=== PATIENT | female | born 1985 | race Caucasian/White ===

== ENCOUNTER 2017-07-05 12:42 | Emergency (ER) | payer OTHER, MEDICAID ==
[~2017-07-05] VITALS: Ht 157.5 cm; Wt 77.1 kg
[~2017-07-05 12:42] MED LIST: AZITHROMYCIN 2250 MG PO; CHLORZOXAZONE500 MG PO; DICLOFENAC SODI75 MG PO; HYDROCODONE-AP1 EAC6 PO; HYDROXYZINE HCL25 M1 PO; NAPROSYN500 MG PO; ROBAXIN500 MG PO; TRAMADOL; TRINATE TABLET1 TAB; VISTARIL 25 MG25 M1 PO
[2017-07-05 13:51] LABS: ABSOLUTE BASOPHILS 0.1 thou/uL (0.0-0.2); ABSOLUTE EOSINOPHILS 0.2 thou/uL (0.0-0.7); ABSOLUTE LYMPHOCYTES 2.7 thou/uL (0.8-5.3); ABSOLUTE MONOCYTES 0.7 thou/uL (0.0-1.2); ABSOLUTE NEUTROPHILS 10.5 thou/uL (1.6-8.1); BASOPHILS 0.6 %; EOSINOPHILS 1.5 %; HEMATOCRIT 42.2 % (37.0-47.0); HEMOGLOBIN 14.2 gm/dL (12.0-15.0); LYMPHOCYTES 18.9 %; MCH 31.2 pg (26.0-34.0); MCHC 33.6 g/dL (28.0-37.0); MCV 92.8 fL (80.0-100.0); MPV 8.5 fl. (7.2-11.1); NUCLEATED RBCS 0 /100WBC; PLATELET COUNT* 264 thou/uL (150-400); RBC 4.55 mil/uL (4.20-5.00); RDW-CV 12.2 % (10.5-14.5); WBC 14.2 thou/uL (4.0-11.0)
[2017-07-05 13:59] LABS: CALCIUM 8.9 mg/dL (8.5-10.1); CREATININE 0.6 mg/dL (0.6-1.3); POTASSIUM 3.4 mmol/L (3.5-5.1)
[2017-07-05 14:04] LABS: ALBUMIN 3.3 g/dL (3.4-5.0); TOTAL BILIRUBIN 0.2 mg/dL (<0.1-1.0); TOTAL PROTEIN 7.3 g/dL (6.4-8.2)
[2017-07-05 14:21] LABS: URINE BILIRUBIN NEGATIVE (Negative); URINE BLOOD TRACE (Negative); URINE CLARITY CLEAR; URINE COLOR YELLOW; URINE GLUCOSE-RANDOM NEGATIVE (Negative); URINE KETONES NEGATIVE (Negative); URINE LEUKOCYTES 2+ (Negative); URINE NITRITE NEGATIVE (Negative); URINE PROTEIN NEGATIVE (Negative); URINE UROBILINOGEN 0.2 E.U./dl (0.2-1.0)
[2017-07-05 14:32] LABS: AMP/METHAMP Negative (Negative); BARBITURATES Negative (Negative); BENZODIAZEPINES POSITIVE (Negative); COCAINE Negative (Negative); METHADONE Negative (Negative); OPIATES Negative (Negative); PCP Negative (Negative); SQUAMOUS >10 Many /LPF (0-3); THC POSITIVE (Negative); URINE WBC 6-15 Few /HPF (0-5)
[2017-07-05 14:35] LABS: BACTERIA 1-9 Few /HPF (None Seen); URINE RBC 0-2 Rare /HPF (0-2)
[2017-07-05 14:38] LABS: CASTS None Seen /LPF (None Seen); CRYSTALS None Seen /LPF (None Seen); MUCUS 0-3 Light strn/LPF (None Seen)
[2017-07-05] MEDS ORDERED: KEFLEX500 M1 PO (17:05)
[2017-07-05] MEDS ORDERED: ZOFRAN ODT4 MG PO (17:05)
[2017-07-05 17:16] VITALS: BP 143/77
== END 2017-07-05 17:17 | disposition home or self-care (01) ==
LOC: M.ERS 12:42
PROVIDERS: Physician Assistant
DX: O23.41 Unspecified infection of urinary tract in pregnancy, first trimester (principal); Z3A.08 8 weeks gestation of pregnancy; F12.10 Cannabis abuse, uncomplicated

== ENCOUNTER 2018-03-31 14:31 | Emergency (ER) | payer OTHER, MEDICAID ==
[~2018-03-31] VITALS: Ht 157.5 cm; Wt 79.4 kg
[~2018-03-31 14:31] MED LIST changes: +KEFLEX500 M1 PO; +ZOFRAN ODT4 MG PO
[2018-03-31] MEDS ORDERED: NABUMETONE 750750 M1 PO (16:05)
[2018-03-31 16:28] VITALS: BP 142/93
== END 2018-03-31 16:29 | disposition home or self-care (01) ==
LOC: M.ERS 14:31
DX: S93.492A Sprain of other ligament of left ankle, initial encounter (principal); Z88.1 Allergy status to other antibiotic agents; Z88.5 Allergy status to narcotic agent; W10.9XXA Fall (on) (from) unspecified stairs and steps, initial encounter; Y92.89 Other specified places as the place of occurrence of the external cause; Y93.89 Activity, other specified; Y99.8 Other external cause status

== ENCOUNTER 2020-04-24 17:53 | Emergency (ER) | payer OTHER, MEDICAID ==
[~2020-04-24] VITALS: Ht 157.5 cm; Wt 102.1 kg
[~2020-04-24 17:53] MED LIST changes: +NABUMETONE 750750 M1 PO
[2020-04-24] MEDS ORDERED: MIRENA1 EACH VAG (18:01)
[2020-04-24 18:45] LABS: URINE BILIRUBIN NEGATIVE (Negative); URINE BLOOD 1+ (Negative); URINE COLOR YELLOW; URINE GLUCOSE-RANDOM NEGATIVE (Negative); URINE KETONES NEGATIVE (Negative); URINE LEUKOCYTES-REFLEX NEGATIVE (Negative); URINE NITRITE-REFLEX NEGATIVE (Negative); URINE PROTEIN NEGATIVE (Negative); URINE SPECIFIC GRAVITY >= 1.030 (1.005-1.030); URINE UROBILINOGEN 0.2 E.U./dl (0.2-1.0)
[2020-04-24 18:50] LABS: URINE CLARITY HAZY
[2020-04-24 18:59] LABS: BACTERIA-REFLEX None Seen /HPF (None Seen); CASTS None Seen /LPF (None Seen); CRYSTALS None Seen /LPF (None Seen); SQUAMOUS >10 Many /LPF (0-3); URINE RBC 0-2 Rare /HPF (0-2); URINE WBC-REFLEX None Seen /HPF (0-5)
[2020-04-24 19:19] LABS: ABSOLUTE BASOPHILS 0.1 thou/uL (0.0-0.2); ABSOLUTE EOSINOPHILS 0.5 thou/uL (0.0-0.7); ABSOLUTE LYMPHOCYTES 4.2 thou/uL (0.8-5.3); ABSOLUTE MONOCYTES 0.8 thou/uL (0.0-1.2); ABSOLUTE NEUTROPHILS 8.3 thou/uL (1.6-8.1); BASOPHILS 0.7 %; EOSINOPHILS 3.7 %; HEMOGLOBIN 15.3 gm/dL (12.0-15.0); LYMPHOCYTES 30.1 %; MCH 31.5 pg (26.0-34.0); MCV 92.5 fL (80.0-100.0); MONOCYTES 5.9 %; MPV 8.8 fl. (7.2-11.1); NUCLEATED RBCS 0 /100WBC; PLATELET COUNT* 335 thou/uL (150-400); POLYS 59.6 %; RBC 4.86 mil/uL (4.20-5.00); RDW-CV 12.5 % (10.5-14.5); WBC 13.9 thou/uL (4.0-11.0)
[2020-04-24 19:31] LABS: CALCIUM 9.4 mg/dL (8.5-10.1); CREATININE 0.8 mg/dL (0.6-1.3); POTASSIUM 3.6 mmol/L (3.5-5.1)
[2020-04-24 19:35] LABS: ALBUMIN 3.9 g/dL (3.4-5.0); TOTAL BILIRUBIN 0.2 mg/dL (<0.1-1.0); TOTAL PROTEIN 7.8 g/dL (6.4-8.2)
[2020-04-24] MEDS ORDERED: ZOFRAN ODT4 MG PO (20:13)
[2020-04-24] MEDS ORDERED: BENTYL 20 MG TA20 M1 PO (20:13)
[2020-04-24 22:33] VITALS: BP 122/62
--- NOTE | 2020-04-25 16:37 | EKG ---
[place] [address] ELECTROCARDIOGRAM REPORT Name: ALDA HIGGINS Room: 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: : 1985 Requested By: Lena Lo Order Number: [id number] MD: Arnol Evans Measurements Intervals [place] Rate: 91 P: 49 ID: [id number] QRS: 73 QRSD: 97 T: -21 QT: 374 QTc: 461 Interpretive Statements Sinus rhythm Nonspecific T abnormalities, inferior leads Baseline wander in lead(s) III Compared to ECG 03/05/2014 13:03:12 T-wave abnormality now present ST (T wave) deviation no longer present Possible ischemia no longer present Electronically Signed On 04-25-2020 16:37:03 FIELD OPERATIONS COORDINATOR by Arnol Evans [email or web address] <ELECTRONICALLY SIGNED> By: Arnol Evans MD, FACC 04/25/20 1637 18 18 Arnol Evans MD, FACC /EPI
== END 2020-04-24 22:36 | disposition home or self-care (01) ==
LOC: M.ERS 17:53
PROVIDERS: Nurse Practitioner Family
DX: R10.12 Left upper quadrant pain (principal); N93.9 Abnormal uterine and vaginal bleeding, unspecified; Z87.19 Personal history of other diseases of the digestive system; Z86.14 Personal history of Methicillin resistant Staphylococcus aureus infection; Z88.1 Allergy status to other antibiotic agents; Z88.5 Allergy status to narcotic agent

== ENCOUNTER 2021-05-31 13:38 | Emergency (ER) | payer OTHER, MEDICAID ==
[~2021-05-31] VITALS: Ht 157.5 cm; Wt 81.7 kg
[~2021-05-31 13:38] MED LIST changes: +BENTYL 20 MG TA20 M1 PO; +MIRENA1 EACH VAG
[2021-05-31] MEDS ORDERED: NORCO5 PO (15:10)
[2021-05-31 15:18] VITALS: BP 160/76
== END 2021-05-31 15:19 | disposition home or self-care (01) ==
LOC: M.ERS 13:38
DX: M25.562 Pain in left knee (principal); Z88.1 Allergy status to other antibiotic agents; Z88.5 Allergy status to narcotic agent; W17.89XA Other fall from one level to another, initial encounter; Y93.89 Activity, other specified; Y92.89 Other specified places as the place of occurrence of the external cause; Y99.9 Unspecified external cause status